=== PATIENT | female | born 1995 | race Caucasian/White ===

== ENCOUNTER 2018-04-12 17:59 | Emergency (ER) | payer MEDICAID ==
[~2018-04-12] VITALS: Ht 149.9 cm; Wt 69.0 kg
[2018-04-12 18:00] VITALS: BP 111/55
[2018-04-12 18:51] LABS: BASOPHILS % 0.5 % (0.0-2.0); EOSINOPHILS % 3.3 % (0.0-5.0); HEMATOCRIT. 38.4 % (36.0-48.0); LYMPHOCYTES % 19.5 % (20.0-50.0); MEAN CORPUSCULAR HEMOGLOBIN 28.9 pg (28.0-32.0); MEAN CORPUSCULAR VOLUME 85.5 fL (81.0-99.0); MEAN PLATELET VOLUME 7.6 fl (7.4-10.4); NEUTROPHILS % 70.7 % (40.0-76.0); PLATELET 299 x1000/uL (130-400); RED BLOOD CELL COUNT 4.49 mill/uL (4.2-5.4)
[2018-04-12 18:55] LABS: CHLORIDE 107 mEq/L (98-107)
== END 2018-04-13 | disposition left against medical advice (07) ==
LOC: ER 18:53
DX: R10.10 Upper abdominal pain, unspecified (principal)
CPT/HCPCS: 36415; 80053; 83690; 85025; 93005; 99285